=== PATIENT | female | born 1970 | race Caucasian/White ===

== ENCOUNTER 2021-01-04 17:31 | Emergency (ER) | payer OTHER ==
[~2021-01-04] VITALS: Ht 177.8 cm; Wt 95.3 kg
[2021-01-04 17:34] VITALS: BP 143/68
--- NOTE | 2021-01-04 17:34 | NUR ---
PATIENT AMBULATED TO BED 5
--- NOTE | 2021-01-04 17:45 | NUR ---
50 y/o f BIBA from the street with a c/c of generalized body aches. Pt states she has been experiencing genreal body pain/aches for 2-3 days. Pt states main complaint to Right foot where she developed a cyst and it "popped, causing a lot of pain." Pt states pain as 8/10, constant, and starts at her feet and radiates to the rest of her body. Pt also states abdominal pain x 2-3 days and associated migrane. Pt denies STUBBS, blurry vision, SOB, CP, fever/chills, N/V, urinary symptoms. Pt denies taking any medications prior to arrival, and denies alcohol, street drugs; admits to marijuana use on Saturday. Pt placed onto satellite project site monitor, bed locked in lowest position, side rails x 2, call light in reach. PMH: HTN Meds: Denies NKA Sx: "Kidney stone surgery"
[2021-01-04] MEDS ORDERED: KETOROLAC 30 MG/ML VIAL IVP ONE (18:35)
[2021-01-04] MEDS ORDERED: NACL 0.9% 1,000 ML IV ONE ×2 (18:35)
[2021-01-04] MEDS ORDERED: ACETAMINOPHEN 325 MG TAB PO ONE (18:35)
--- NOTE | 2021-01-04 18:43 | NUR ---
COVID DENNIS AND FLU SWAB OBTAINED AT THIS TIME
[2021-01-04 18:56] LABS: BASOPHILS # (AUTO) 0.1 K/uL (0.00-0.22); EOSINOPHILS % (AUTO) 0.3 % (0.0-4.0); HEMATOCRIT 26.3 % (36-48); LYMPHOCYTES # (AUTO) 1.4 K/uL (2.5-16.5); LYMPHOCYTES % (AUTO) 11.8 % (20.5-51.1); MEAN CORPUSCULAR HEMOGLOBIN 18 pg (27-31); MEAN CORPUSCULAR HGB CONC 30 g/dL (33-37); MEAN CORPUSCULAR VOLUME 60.4 fL (80-94); MONOCYTES # (AUTO) 0.6 K/uL (0.8-1.0); MONOCYTES % (AUTO) 5.3 % (1.7-9.3); NEUTROPHILS # (AUTO) 9.6 K/uL (1.8-7.7); NEUTROPHILS % (AUTO) 81.6 % (42.2-75.2); PLATELET COUNT (AUTO) 317 K/uL (140-450); RED BLOOD CELL COUNT(AUTO) 4.34 MIL/uL (4.20-5.40); RED CELL DISTRIBUTION WIDTH 17.9 % (11.6-13.7); WHITE BLOOD COUNT (AUTO) 11.7 K/uL (4.8-10.8)
[2021-01-04 19:15] LABS: ALBUMIN 3.1 g/dL (3.4-5.0); ANION GAP 9.1 (8-16); ASPARTATE AMINOTRANSFERASE 12 U/L (15-37); CARBON DIOXIDE 28.1 mmol/L (21-32); CHLORIDE 100 mmol/L (98-107); GFR ARICAN-AMERICAN 76 mL/min (>90); GLUCOSE 106 mg/dL (74-106); POTASSIUM 3.2 mmol/L (3.5-5.1); SODIUM SERUM 134 mmol/L (136-145); TOTAL BILIRUBIN 0.5 mg/dL (0.0-1.0); UREA NITROGEN, BLOOD 10 mg/dL (7-18)
--- NOTE | 2021-01-04 19:22 | NUR ---
Report given to ARTI Miles, who assumed care for patient.
[2021-01-04] MEDS ORDERED: NEOMYCIN/POLYMYXIN/BACITRACIN OIN 15 GM TUBE TP ONE (20:55)
[2021-01-04 21:16] LABS: APPEARANCE,URINE CLEAR (CLEAR); BILIRUBIN,URINE NEGATIVE (NEGATIVE); BLOOD, URINE TRACE-I (NEGATIVE); COLOR,URINE YELLOW (YELLOW); LEUKOCYTE ESTERASE ,URINE NEGATIVE (NEGATIVE); NITRITE, URINE NEGATIVE (NEGATIVE); UGLUCOSE NEGATIVE (NEGATIVE)
[2021-01-04 21:21] LABS: WBC,URINE 0-5 /HPF (0-5)
[2021-01-04 21:29] LABS: BARBITURATE, URINE NEGATIVE ng/ml (NEG <=200)
[2021-01-04 21:30] LABS: BENZODIAZEPINE, URINE NEGATIVE ng/mL (NEG <=200); CANNABINOID, URINE POSITIVE ng/mL (NEG <=50); COCAINE, URINE NEGATIVE ng/mL (NEG <=300); OPIATE, URINE NEGATIVE ng/mL (NEG <=2000); PHENCYCLIDINE SCREEN,URINE NEGATIVE ng/mL (NEG <=25)
[2021-01-04 22:33] VITALS: BP 146/90
--- NOTE | 2021-01-04 22:34 | NUR ---
Patient discharged with v/s stable. Written and verbal after care instructions given and explained. Patient verbalized understanding. Ambulatory with steady gait. All questions addressed prior to discharge. Advised to follow up with PMD.
--- NOTE | 2021-01-05 20:23 | NUR ---
LATE ENTRY- 0.9% NS ENDED AT 2105
== END 2021-01-04 22:34 | disposition home or self-care (01) ==
LOC: MED 17:31
DX: M79.10 Myalgia, unspecified site (principal); D64.9 Anemia, unspecified; E87.6 Hypokalemia; L97.529 Non-pressure chronic ulcer of other part of left foot with unspecified severity; I10 Essential (primary) hypertension; Z20.822 Contact with and (suspected) exposure to COVID-19
CPT/HCPCS: 36415; 80053; 80305; 81001; 84702; 85025; 87426; 87804; 96361; 96374; 99283; G0482; J1885; J7030

== ENCOUNTER 2021-07-14 17:59 | Emergency (ER) | payer OTHER ==
[~2021-07-14] VITALS: Ht 175.3 cm; Wt 99.8 kg
[2021-07-14 17:59] VITALS: BP 166/109
--- NOTE | 2021-07-14 18:00 | NUR ---
PT TO AWAIT IN LOBBY
[2021-07-14] MEDS ORDERED: amLODIPine 5 MG TAB PO ONE (19:30)
[2021-07-14 19:50] LABS: BASOPHILS % (AUTO) 0.2 % (0.0-2.0); EOSINOPHILS # (AUTO) 0.1 K/uL (0-0.4); EOSINOPHILS % (AUTO) 1.5 % (0.0-4.0); HEMATOCRIT 32.4 % (36-48); HEMOGLOBIN 9.9 g/dL (12.0-16.0); LYMPHOCYTES # (AUTO) 2.7 K/uL (2.5-16.5); LYMPHOCYTES % (AUTO) 30.1 % (20.5-51.1); MEAN CORPUSCULAR HEMOGLOBIN 20 pg (27-31); MEAN CORPUSCULAR HGB CONC 31 g/dL (33-37); MEAN CORPUSCULAR VOLUME 65.2 fL (80-94); MONOCYTES # (AUTO) 0.7 K/uL (0.8-1.0); MONOCYTES % (AUTO) 7.5 % (1.7-9.3); NEUTROPHILS # (AUTO) 5.3 K/uL (1.8-7.7); NEUTROPHILS % (AUTO) 60.7 % (42.2-75.2); PLATELET COUNT (AUTO) 353 K/uL (140-450); RED BLOOD CELL COUNT(AUTO) 4.97 MIL/uL (4.20-5.40); RED CELL DISTRIBUTION WIDTH 20.6 % (11.6-13.7); WHITE BLOOD COUNT (AUTO) 8.8 K/uL (4.8-10.8)
--- NOTE | 2021-07-14 20:05 | NUR ---
ambulated to chair D
[2021-07-14 20:09] LABS: ANION GAP 8.6 (8-16); CARBON DIOXIDE 29.7 mmol/L (21-32); CREATININE 1.3 mg/dL (0.6-1.3); POTASSIUM 3.3 mmol/L (3.5-5.1); TOTAL BILIRUBIN 0.5 mg/dL (0.0-1.0)
[2021-07-14] MEDS ORDERED: POTASSIUM CHLORIDE 10 MEQ TABER PO ONE (20:25)
--- NOTE | 2021-07-14 21:00 | NUR ---
provided patient food-- sandwich, juice, applesauce.
[2021-07-14] MEDS ORDERED: AMLO5TAB PO (21:13)
[2021-07-14] MEDS ORDERED: FERR325E14 PO (21:13)
[2021-07-14 21:26] VITALS: BP 156/94
--- NOTE | 2021-07-14 21:26 | NUR ---
Patient discharged with v/s stable. Written and verbal after care instructions given and explained. Patient alert, oriented and verbalized understanding of instructions. Ambulatory with steady gait. All questions addressed prior to discharge. ID band removed. Patient advised to follow up with PMD. Rx of Norvasc, and ferrous sulfate given. Patient educated on indication of medication including possible reaction and side effects. Opportunity to ask questions provided and answered.
== END 2021-07-14 21:26 | disposition home or self-care (01) ==
LOC: MED 17:59
DX: I10 Essential (primary) hypertension (principal); E87.6 Hypokalemia; D50.9 Iron deficiency anemia, unspecified; F17.210 Nicotine dependence, cigarettes, uncomplicated; F12.10 Cannabis abuse, uncomplicated; Z71.6 Tobacco abuse counseling
CPT/HCPCS: 36415; 71045; 80053; 85025; 93005; 99285